=== PATIENT | male | born 1975 | race African-American/Black ===

== ENCOUNTER 2020-07-14 14:48 | Emergency (ER) | payer OTHER, MEDICAID ==
[~2020-07-14] VITALS: Ht 167.6 cm; Wt 79.0 kg
[2020-07-14 15:01] VITALS: BP 136/66
== END 2020-07-14 17:08 | disposition home or self-care (01) ==
LOC: ER 15:26
DX: H10.023 Other mucopurulent conjunctivitis, bilateral (principal); Z88.2 Allergy status to sulfonamides
CPT/HCPCS: 99283

== ENCOUNTER 2020-08-15 02:07 | Emergency (ER) | payer OTHER, MEDICAID ==
[~2020-08-15] VITALS: Ht 167.6 cm; Wt 80.0 kg
[2020-08-15 06:23] VITALS: BP 146/87
== END 2020-08-15 06:24 | disposition home or self-care (01) ==
LOC: ER 02:07
DX: L29.0 Pruritus ani (principal); E05.90 Thyrotoxicosis, unspecified without thyrotoxic crisis or storm; Z88.2 Allergy status to sulfonamides
CPT/HCPCS: 99282

== ENCOUNTER 2021-04-27 01:47 | Emergency (ER) | payer OTHER, MEDICAID ==
[~2021-04-27] VITALS: Ht 167.6 cm; Wt 85.4 kg
[2021-04-27 02:16] VITALS: BP 157/75
== END 2021-04-27 07:08 | disposition left against medical advice (07) ==
LOC: ER 01:47
DX: Z53.21 Procedure and treatment not carried out due to patient leaving prior to being seen by health care provider (principal)